=== PATIENT | female | born 1990 | race African-American/Black ===

== ENCOUNTER 2020-09-11 12:36 | Emergency (ER) | payer OTHER ==
[~2020-09-11] VITALS: Ht 167.6 cm; Wt 60.3 kg
[2020-09-11] MEDS ORDERED: MOBIC7.5 MG PO (13:57)
[2020-09-11 14:42] VITALS: BP 112/86
== END 2020-09-11 14:44 | disposition home or self-care (01) ==
LOC: ER 12:36
DX: S62.393A Other fracture of third metacarpal bone, left hand, initial encounter for closed fracture (principal); R07.81 Pleurodynia; V43.52XA Car driver injured in collision with other type car in traffic accident, initial encounter; Y93.89 Activity, other specified; Y92.410 Unspecified street and highway as the place of occurrence of the external cause; Y99.8 Other external cause status

== ENCOUNTER 2020-11-29 18:49 | Emergency (ER) | payer OTHER ==
[~2020-11-29] VITALS: Ht 162.6 cm; Wt 59.0 kg
[~2020-11-29 18:49] MED LIST: MOBIC7.5 MG PO
[2020-11-29 19:57] LABS: HEMOGLOBIN 9.4 gm/dL (12.0-15.0); MCH 18.7 pg (26.0-34.0); MCHC 32.3 g/dL (28.0-37.0)
[2020-11-29 19:59] LABS: HEMATOCRIT 29.1 % (37.0-47.0); PLATELET COUNT 309 thou/uL (150-400); RBC 5.02 mil/uL (4.20-5.00); RDW 20.8 % (10.5-14.5); WBC 6.4 thou/uL (4.0-11.0)
[2020-11-29 20:02] LABS: ANION GAP 10 mmol/L (7-16); BUN 8 mg/dL (7-18); CALCIUM 8.8 mg/dL (8.5-10.1); CHLORIDE 107 mmol/L (98-107); CO2 27 mmol/L (21-32); CREATININE 0.7 mg/dL (0.6-1.0); GLUCOSE 75 mg/dL (74-106); POTASSIUM 3.5 mmol/L (3.5-5.1); SODIUM 144 mmol/L (136-145)
[2020-11-29 20:11] LABS: ALBUMIN 3.4 g/dL (3.4-5.0); SGOT 11 U/L (15-37); SGPT 16 U/L (14-59); TOTAL BILIRUBIN 0.7 mg/dL (0.2-1.0); TOTAL PROTEIN 7.9 g/dL (6.4-8.2); TROPONIN-I <0.06 ng/mL (<0.06)
[2020-11-29 20:25] LABS: ABSOLUTE NEUTROPHILS 3.7 thou/uL (1.4-8.2); SCHISTOCYTES 1+; TARGET CELLS 2+; TEARDROPS 1+
[2020-11-29 20:26] LABS: OVALOCYTES FEW; POLYCHROMASIA 1+
[2020-11-29] MEDS ORDERED: IRON325 PO (21:25)
[2020-11-29 21:31] VITALS: BP 107/66
--- NOTE | 2020-11-30 13:10 | EKG ---
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
== END 2020-11-29 21:35 | disposition home or self-care (01) ==
LOC: ER 18:49
PROVIDERS: Physician Assistant
DX: R07.89 Other chest pain (principal); Z20.822 Contact with and (suspected) exposure to COVID-19; R51.9 Headache, unspecified